=== PATIENT | female | born 1995 | race Asian ===

== ENCOUNTER 2018-12-16 17:49 | Emergency (ER) | payer OTHER ==
[~2018-12-16] VITALS: Ht 170.2 cm; Wt 67.6 kg
[2018-12-16 17:58] VITALS: BP 114/73; Ht 170.2 cm; Wt 67.6 kg
== END 2018-12-16 20:25 | disposition home or self-care (01) ==
LOC: ED 17:49
DX: K13.79 Other lesions of oral mucosa (principal)